=== PATIENT | male | born 1960 | race Caucasian/White ===

== ENCOUNTER 2023-10-22 04:23 | Emergency (ER) | payer OTHER, SELFPAY ==
[2023-10-22] VITALS (15 sets, daily range): BP systolic 125–174; BP diastolic 64–91
[2023-10-22] MEDS: LOW STRENGTH ASPIRIN 324 MG PO (04:59)
[2023-10-22 05:00] LABS: % Basophils 0.6 % (0-2); % Eosinophils 1.1 % (0-6); % Immature Granulocytes 0.6 % (0-0.5); % Lymphocytes 23.2 % (20.5-51.1); % Monocytes 11.2 % (1.7-9.3); % Neutrophils 63.3 % (42.2-75.2); Absolute Eosinophils 0.1 10^3/uL (0-0.7); Absolute Lymphocytes 1.7 10^3/uL (1.2-3.4); Absolute Monocytes 0.8 10^3/uL (0.1-0.6); Absolute Neutrophils 4.6 10^3/uL (1.4-6.5); Hematocrit 38.3 % (39.0-52.0); Hemoglobin 14.1 g/dL (13.0-18.0); Mean Corp Hgb Conc. 36.8 g/dL (33.0-37.0); Mean Corpuscular Hgb 34.3 pg (27.0-31.0); Mean Corpuscular Volume 93.2 fL (80.0-94.0); Mean Platelet Volume 8.9 fL (7.4-10.4); Nucleated Red Blood Cells % 0 % (-); Platelet Count 223 10^3/uL (130-400); Red Blood Cell Count 4.11 10^6/uL (4.70-6.10); Red Cell Dist. Width 11.9 % (11.5-14.5); White Blood Cell Count 7.3 10^3/uL (4.8-10.8)
[2023-10-22] MEDS: NITROSTAT (SUBLINGUAL) 0.4 MG SL ×2 (05:00→05:06)
--- NOTE | 2023-10-22 05:10 | ED.GENMED ---
History of Present Illness
<Chon Chalres DO - Last Filed: 10/22/23 06:01>
General
Chief Complaint: Chest Pain
Source: patient
Exam Limitations: none
Time Seen by Provider: 10/22/23 04:47
Nursing documentation reviewed up to this point in time: agreed with
History of Present Illness
History of Present Illness:
63-year-old male hypertensive high cholesterol drinker non-smoker does have a family history of CAD but no personal history of CAD not known to be diabetic presents with indigestion burning in his chest intermittently 3 hours prior to arrival to get
sweaty which is not uncommon for him, takes an acids which helps his symptoms tonight it did not help, he did have a BLT sandwich and a few beers which is not uncommon for him, no abdominal pain no nausea he did feel dizzy no syncope no dark or
bloody stools
Past History
<Chon Charles DO - Last Filed: 10/22/23 06:01>
Past History
ED Past Medical History: HTN and Hypercholesterolemia; Negative SC
Social History
Tobacco: Non-smoker
Alcohol: Occasional
Drug: None
Personal:
Living: with family
Employment: Employed
Family History
Family History: CAD
Review of Systems
<Chon Charles DO - Last Filed: 10/22/23 06:01>
Review of Systems
All Other Systems: Not applicable
Constitutional: Denies fever or fatigue
Respiratory: Reports trouble breathing
Cardiac: Reports chest pain and diaphoresis; Denies syncope
ABD/GI: Reports no symptoms; Denies abdominal pain or vomiting
: Reports no symptoms
Musculoskeletal: Reports no symptoms
Skin: Reports no symptoms
Neurological: Reports dizzy
Endocrine: Reports no symptoms
Phy Exam
<Chon Charles DO - Last Filed: 10/22/23 06:01>
Physical Exam
Physical Exam:
Physical Exam
General: no apparent distress, not acutely ill
Neck: No jaundice
Heart: s1/s2 regular rate and rhythm, no murmur. equal radial pulses.
Lungs: no acute respiratory distress. clear bilaterally
Abdomen: Nontender
Neuro: alert and oriented. no focal neurological deficits
Skin: no rash
Psychiatric: well kept. interactive and cooperative
Extremities: no edema.
Scores
<Chon Charles DO - Last Filed: 10/22/23 06:01>
Heart Score for Chest Pain Patients
STEMI patient?: No
History: Moderately Suspicious
ECG: Nonspecific Repolarization
Age: >45 - <65 years
Risk Factors: 1 or 2 Risk Factors
Troponin: </= Normal Limit
Heart Score for Chest Pain Patients: 4
Heart Score Risk: 20.3% MACE over next 6 weeks
<Melchor Borrero MD - Last Filed: 10/22/23 11:16>
Heart Score for Chest Pain Patients
Heart Score for Chest Pain Patients: 4
Heart Score Risk: 20.3% MACE over next 6 weeks
Course
<Chon Charles DO - Last Filed: 10/22/23 06:01>
Orders/Labs/Results
Orders:
Orders
10/22/23
Electrocardiogram (*1) Stat
Reason for Study: Chest Pain
Comment: DONE
10/22/23 04:23
Electrocardiogram (*1) Urgent
Reason for Study: Chest Pain
EKG- Treatment ONCE
10/22/23 04:49
Complete Blood Count/With Diff Urgent
Comprehensive Metabolic Panel Urgent
Lipase Urgent
Comment: ADD ON
Troponin I Urgent
10/22/23 04:50
EKG with chest pain [ECG as needed] As Directed
ECG as needed for:: Chest Pain
10/22/23 04:55
Aspirin Chewable [Low Strength Aspirin] 324 mg .ROUTE .STK-MED ONE
10/22/23 04:56
Aspirin 325 mg PO NOW STA
Nitroglycerin Sublingual [Nitrostat (Sublingual)] 0.4 mg SL [id number] PRN
CR Chest Portable - 1 View Urgent
Comment:
Reason For Exam: cp
Reason Study Needs to be Portable: Unable to Transport
10/22/23 04:57
Add On- LAB Urgent
Tests Added?: lipase
Nitroglycerin Sublingual [Nitrostat (Sublingual)] 0.4 mg .ROUTE .STK-MED ONE
10/22/23 04:58
Aspirin Chewable [Low Strength Aspirin] 324 mg PO NOW STA
10/22/23 05:57
Pantoprazole [Protonix IV] 40 mg IV NOW STA
10/22/23 07:39
Electrocardiogram (*1) Urgent
Reason for Study: Chest Pain
EKG- Treatment ONCE
10/22/23 07:57
Troponin I Urgent
10/22/23 09:54
Troponin I Stat
Abnormal Lab Results
10/22/23
04:49
RBC 4.11 L 10^6/uL
(4.70-6.10)
Hct 38.3 L %
(39.0-52.0)
MCH 34.3 H pg
(27.0-31.0)
Absolute Monos (auto) 0.8 H 10^3/uL
(0.1-0.6)
Immature Gran % 0.6 H %
(0-0.5)
Monocytes % 11.2 H %
(1.7-9.3)
Glucose 178 H mg/dl
(70-99)
10/22/23 04:49
10/22/23 04:49
Vital Signs
Initial and Last Documented VS:
Initial Vital Signs
Temp Pulse Resp BP Pulse Ox
36.6 C 86 20 174/89 95
10/22/23 04:27 10/22/23 04:27 10/22/23 04:27 10/22/23 04:27 10/22/23 04:27
Last Documented Vital Signs
Temp Pulse Resp BP Pulse Ox
36.6 C 65 13 152/78 96
10/22/23 04:27 10/22/23 10:30 10/22/23 10:30 10/22/23 10:30 10/22/23 10:30
<Melchor Borrero MD - Last Filed: 10/22/23 11:16>
Orders/Labs/Results
Orders:
Orders
10/22/23
Electrocardiogram (*1) Stat
Reason for Study: Chest Pain
Comment: DONE
10/22/23 04:23
Electrocardiogram (*1) Urgent
Reason for Study: Chest Pain
EKG- Treatment ONCE
10/22/23 04:49
Complete Blood Count/With Diff Urgent
Comprehensive Metabolic Panel Urgent
Lipase Urgent
Comment: ADD ON
Troponin I Urgent
10/22/23 04:50
EKG with chest pain [ECG as needed] As Directed
ECG as needed for:: Chest Pain
10/22/23 04:55
Aspirin Chewable [Low Strength Aspirin] 324 mg .ROUTE .STK-MED ONE
10/22/23 04:56
Aspirin 325 mg PO NOW STA
Nitroglycerin Sublingual [Nitrostat (Sublingual)] 0.4 mg SL [id number] PRN
CR Chest Portable - 1 View Urgent
Comment:
Reason For Exam: cp
Reason Study Needs to be Portable: Unable to Transport
10/22/23 04:57
Add On- LAB Urgent
Tests Added?: lipase
Nitroglycerin Sublingual [Nitrostat (Sublingual)] 0.4 mg .ROUTE .STK-MED ONE
10/22/23 04:58
Aspirin Chewable [Low Strength Aspirin] 324 mg PO NOW STA
10/22/23 05:57
Pantoprazole [Protonix IV] 40 mg IV NOW STA
10/22/23 07:39
Electrocardiogram (*1) Urgent
Reason for Study: Chest Pain
EKG- Treatment ONCE
10/22/23 07:57
Troponin I Urgent
10/22/23 09:54
Troponin I Stat
Abnormal Lab Results
10/22/23
04:49
RBC 4.11 L 10^6/uL
(4.70-6.10)
Hct 38.3 L %
(39.0-52.0)
MCH 34.3 H pg
(27.0-31.0)
Absolute Monos (auto) 0.8 H 10^3/uL
(0.1-0.6)
Immature Gran % 0.6 H %
(0-0.5)
Monocytes % 11.2 H %
(1.7-9.3)
Glucose 178 H mg/dl
(70-99)
10/22/23 04:49
10/22/23 04:49
Vital Signs
Initial and Last Documented VS:
Initial Vital Signs
Temp Pulse Resp BP Pulse Ox
36.6 C 86 20 174/89 95
10/22/23 04:27 10/22/23 04:27 10/22/23 04:27 10/22/23 04:27 10/22/23 04:27
Last Documented Vital Signs
Temp Pulse Resp BP Pulse Ox
36.6 C 65 13 152/78 96
10/22/23 04:27 10/22/23 10:30 10/22/23 10:30 10/22/23 10:30 10/22/23 10:30
<Chon Charles DO - Last Filed: 10/22/23 06:01>
MDM/Problems Addressed
Differential Diagnosis Includes:
Reflux pancreatitis ACS pain did not radiate to the back, doubt dissection or PE
MDM/Problems Addressed:
Chest pain
Chronic conditions affecting care: HTN
Acute Exacerbation and/or Progression of Chronic Illness: HTN
<Chon Charles DO - Last Filed: 10/22/23 06:01>
*Radiology
Radiology exam reviewed: preliminary read by ED provider
*Pulse Oximetry
Patient hypoxic: no
*EKG
Interpreted by ED Provider?: Yes
Interpretation: normal
Comparison EKG: no comparison EKG present
Heart Rate: 78
Rate: normal
Rhythm: sinus
Ischemia: non-specific ST changes
*[facility] [employer] Interpretation
Rate: normal
Interpretation: normal
Heart Rate: 78
Rhythm: sinus
*Critical Care Note
Total Time (30-74mins, 75-104mins- exclusive of procedures): Not Applicable
<Melchor Borrero MD - Last Filed: 10/22/23 11:16>
Update Note
Update Note:
UPDATE (Melchor Borrero MD)
I have seen and evaluated the patient after signout and reviewed all labs and imaging.
Focused HPI: 63-year-old male with a past medical history of hypertension and hyperlipidemia presents to the emergency room for evaluation of chest pain. He says that it started around 1 AM while he was sleeping. He says that he had a BLT with
extra tomato last night and then at 1 AM woke up with substernal chest pain�he says that he has had this many times in the past related to heartburn. He says he took [id number] antacid x 1 which usually helps after a few minutes but this did
not relieve his symptoms. He says that he waited about an hour and then took another antacid and again this did not relieve his symptoms. Ultimately came to the emergency room to be assessed given duration of symptoms. Since arrival he says
symptoms have improved although still waxing and waning somewhat. He says that he did have some mild shortness of breath initially. No nausea or vomiting, diaphoresis.
Physical exam: Awake alert not in distress. Triage hypertension noted�blood pressure normalized by my assessment. Rest of vitals normal. No cardiac rubs gallops or murmurs. Lungs clear to auscultation bilaterally. Abdomen nontender.
Medical Decision Makin-year-old male presents for evaluation of atypical chest pain for few hours last night which has since improved. Similar in quality to previous episodes of heartburn but not improved with antacids as previous. Vitals and
exam as above. Reviewed initial EKG which shows sinus rhythm with no ectopy, nonspecific T wave abnormalities. He had initial lab work sent off including a CBC and CMP which were unremarkable. His initial troponin was undetectable. Chest x-ray
shows no acute disease on my independent review. We are monitoring patient pending repeat EKG and troponin. If remains symptom-free with negative troponins likely stable for outpatient follow-up�certainly by quality and history this sounds like
GERD/esophagitis.
Repeat troponin still negative but did uptrend slightly from initial�will send for a third troponin. Patient chest pain-free is actually requesting discharge. Continue to monitor.
Third troponin flat. Patient chest pain-free with stable vitals and no changes on EKG. Certainly by history this sounds like GERD/esophagitis. I do think it would be reasonable to have him see cardiology as an outpatient for follow-up after this
more prolonged episode than usual. He feels comfortable with this plan and in fact is requesting to be discharged at this point. All questions answered.
ED Attending Note
<Chon Charles, DO - Last Filed: 10/22/23 06:01>
-
Portions of this chart may have been created with voice recognition software.� Occasional wrong word or��sound alike� substitutions may have occurred due to the inherent limitations of voice recognition software.
Discharge Plan
Departure
Patient Disposition: Home (Routine Discharge)
Date of Disposition: 10/22/23
Time of Disposition: 10:35
Patient with high blood pressure during this ER visit?: No
Discharge Problem:
Chest pain
Instructions: Chest Pain DCA Follow Up
Prescriptions:
No Action
aspirin 81 MG tablet,delayed release (DR/EC)
81 mg PO DAILY
lisinopril 10 MG tablet
10 mg PO DAILY
fenofibrate nanocrystallized 145 MG tablet
145 mg PO DAILY
Referrals:
Christopher Boyd MD [Family Provider] -
Topher Garcia MD [Active] - Call in 1-3 days for appt
Activity Restrictions/Additional Instructions:
Thank you for visiting the Emergency Department at [facility].
1. Please schedule a follow up appointment as directed. Call first thing tomorrow morning to make an appointment.
2. If indicated, please take your medications as instructed and indicated on discharge paperwork.
3. If any of your symptoms do not improve, or persist, or become more severe within 6-12 hours, please return to the emergency department for further care.
4. Please return to the emergency department if you develop a headache, neck pain/stiffness, fever greater than 100.4F, chest pain, shortness of breath, persistent nausea, vomiting, slurred speech, difficulty walking, numbness/tingling, weakness,
signs of infection or any other symptoms that are worrisome to you.
Please call [phone] if you have any questions.
Interventions
Interventions:
*Risk Screen - Suicide Last Done: 10/22/23 04:35
*General Assessment Last Done: 10/22/23 04:35
*Neglect/Abuse Screening Last Done: 10/22/23 04:35
ED- Fall Risk Assessment Last Done: 10/22/23 04:35
*ED COVID-19 Vaccine History Last Done: 10/22/23 04:35
*Nursing Disposition Last Done: 10/22/23 10:48
ED- Cardiac Assessment Last Done: 10/22/23 08:12
Discharge Date and Time
Discharge Date/Time: 10/22/23 10:49
Print Language: TELUGU
[2023-10-22 05:27] LABS: ALT (SGPT) 29 U/L (0-50); AST (SGOT) 29 U/L (17-59); Albumin 4.4 g/dl (3.5-5.0); Alkaline Phosphatase 102 U/L (38-126); Blood Urea Nitrogen 17 mg/dl (9-20); Calcium 9.3 mg/dl (8.4-10.2); Carbon Dioxide 24 mmol/L (22-30); Chloride 104 mmol/L (98-107); Glucose 178 mg/dl (70-99); Lipase 156 U/L (23-300); Potassium 3.8 mmol/L (3.5-5.1); Sodium 139 mmol/L (135-145); Total Bilirubin 0.4 mg/dl (0.2-1.3); eGFR > 60.00
[2023-10-22 05:35] LABS: Troponin I < 0.012 ng/ml
[2023-10-22] MEDS: PROTONIX IV 40 MG IV (06:05)
[2023-10-22 08:46] LABS: Troponin I 0.028 ng/ml
[2023-10-22 10:28] LABS: Troponin I 0.028 ng/ml
== END 2023-10-22 10:49 | disposition home or self-care (01) ==
LOC: EMR 04:23
PROVIDERS: Emergency Medicine; EMERGENCY PHYSICIAN Emergency Medicine; FAMILY PHYSICIAN Family Medicine
DX: R07.89 Other chest pain (principal); I10 Essential (primary) hypertension; E78.00 Pure hypercholesterolemia, unspecified; Z82.49 Family history of ischemic heart disease and other diseases of the circulatory system
CPT/HCPCS: 99283; 96374; 71045; 80053; 83690; 84484; 85025; 93005

== ENCOUNTER → 2023-11-07 07:06 | Outpatient (REF) | payer OTHER, SELFPAY | LOC: RCS 07:06 | PROVIDERS: ATTENDING PHYSICIAN Internal Medicine Interventional Cardiology; FAMILY PHYSICIAN Family Medicine | DX: I10 Essential (primary) hypertension (principal); E78.2 Mixed hyperlipidemia; R73.03 Prediabetes; R07.89 Other chest pain | CPT/HCPCS: 78452; 93017; A9500 ==

== ENCOUNTER → 2023-11-22 10:01 | Outpatient (REF) | payer OTHER, SELFPAY | LOC: RCS 10:01 | PROVIDERS: ATTENDING PHYSICIAN Internal Medicine Interventional Cardiology; FAMILY PHYSICIAN Family Medicine | DX: R07.89 Other chest pain (principal); I10 Essential (primary) hypertension; E78.2 Mixed hyperlipidemia; R73.03 Prediabetes | CPT/HCPCS: 93306 ==